=== PATIENT | male | born 1945 | race Caucasian/White ===

== ENCOUNTER 2017-05-04 07:20 | Day surgery (SDC) | payer BC, OTHER ==
[~2017-05-04] VITALS: Ht 170.2 cm; Wt 83.9 kg
[~2017-05-04 07:20] MED LIST: ADVIL,NUPRIN,M200 MG PO; ASPIR 8181 M1 PO; ASPIR-LOW81 MG PO; ASPIR-TRIN325 M1 PO; ATORVASTATIN CA80 MG PO; EFFIENT10 MG PO; FIBER THERAPY0.52 GM PO; IBUPROFEN200 M1 PO; LIPITOR80 MG PO; METOPROLOL SUCC50 MG PO; RANITIDINE HCL150 MG PO; TOPROL XL50 MG PO; Toprol XL PO; ZESTRIL,PRINIVI10 M1 PO; Zocor PO
[2017-05-04 08:19] LABS: MCH 29.1 PG (29.0-34.0); MCHC 31.2 G/DL (30.0-36.0); MCV 93.5 FL (86-99); MEAN PLAT.VOLUME 9.5 uM^3 (9.0-12.4); PLATELET COUNT 219 K/uL (156-360); RBC DIS.WIDTH-CV 13.4 % (11.8-14.6); RBC DIS.WIDTH-SD 45.3 % (39-53); WHITE BLOOD COUNT 6.5 K/uL (4.1-10.2)
[2017-05-04 08:46] LABS: ANION GAP 8 MEQ/L (2-14); CHLORIDE 108 MEQ/L (99-109); GFR ESTIMATE (CALCULATED) > 59 mL/min/; GLUCOSE 107 mg/dL (70-99); SAMPLE HEMOLYSIS CHECK 0; SAMPLE ICTERIC CHECK 0; SAMPLE LIPEMIA CHECK 0; SODIUM 141 MEQ/L (136-147); UREA NITROGEN (BUN) 16 mg/dL (9-23)
== END 2017-05-04 14:30 | disposition home or self-care (01) ==
LOC: CATH 07:20
PROVIDERS: Internal Medicine Cardiovascular Disease
DX: I25.10 Atherosclerotic heart disease of native coronary artery without angina pectoris (principal); I25.2 Old myocardial infarction; E78.5 Hyperlipidemia, unspecified; Z79.82 Long term (current) use of aspirin; Z87.891 Personal history of nicotine dependence
CPT/HCPCS: 80048; 85027; C1769; C1887; J1644; J2250; J3010